=== PATIENT | female | born 1945 | race Caucasian/White ===

== ENCOUNTER → 2016-05-24 | Outpatient (CLI) | payer MEDICARE ==
--- NOTE | 2016-05-24 09:54 | XR ---
EXAMINATION TYPE: XR lumbosacral spine min 4V DATE OF EXAM: 05/24/2016 9:27 AM CLINICAL HISTORY: Low back pain radiating into legs from fall injury 20 years ago per patient. TECHNIQUE: Frontal, lateral, and oblique images of the lumbar spine are obtained. COMPARISON: None FINDINGS: Osseous structures are demineralized which is noted low radiographic sensitivity. There are 5 lumbar type vertebral bodies identified. The lumbar spine shows levoconvex scoliotic cur vature centered at L3-L4 level without evidence of acute fracture or dislocation. There is reversal o f normal lumbar lordosis. Vertebral body heights are within normal limits. There is mild to moderate multilevel disc space narrowing and spurring most prominent at L3-L4 and L4-L5 levels. Multilevel fa cet degenerative changes are present most prominent in lower lumbar levels. The oblique images appear within normal limits. Vascular calcification in the overlying soft tissue is seen. IMPRESSION: Demineralization with loss of normal lumbar lordosis, multilevel degenerative changes mos t prominent at the right L3-L4 and L4-L5 levels noted.
== END | disposition home or self-care (01) ==
LOC: RADXRMAIN 09:03
PROVIDERS: ATTEND Family Medicine
DX: M81.0 Age-related osteoporosis without current pathological fracture (principal); M40.56 Lordosis, unspecified, lumbar region; M51.36 Other intervertebral disc degeneration, lumbar region
CPT/HCPCS: 72110

== ENCOUNTER → 2016-06-14 | Outpatient (CLI) | payer MEDICARE ==
--- NOTE | 2016-06-14 16:32 | BD ---
EXAMINATION TYPE: MG DEXA axial skeleton. DATE OF EXAM: 06/14/2016 10:22 AM COMPARISON: 10.07.2012 CLINICAL HISTORY: 71-year-old female Z78.0 POST MENOPAUSALW/O HRT Height: 63.5 Weight: 144 FRAX RISK QUESTIONS: Alcohol (3 or more units per day): Family History (Parent hip fracture): Glucocorticoids (More than 3mos): (Ex: prednisone, prednisolone, methylprednisolone, dexamethasone, and hydrocortisone). History of Fracture in Adulthood: Secondary Osteoporosis: 1. Type 1 Diabetes: 2. Hyperthyroidism: 3. Menopause before 45: 4. Malnutrition: 5. Chronic liver disease: Rheumatoid Arthritis: Current Tobacco Use: RISK FACTORS HISTORY OF: Family History of Osteoporosis: YES, HER MOTHER, NO BROKEN HIP THOUGH Smoke tobacco: NO Drink Alcohol: NO Active: NOT REALLY, SPINAL PAIN Diet low in dairy products/other sources of calcium: YES, LACTOSE INTOLERANT Postmenopausal woman: PARTIAL HYST IN HER LATE 20'S, MENOPAUSE SHE THINKS LATE 40'S EARLY 50'S Lost more than 2 inches in height since high school: NO Adrenal Insufficiency: NO MEDICATIONS: Prednisone or other steroids: INHALER FOR LUNGS, ASTHMA, VENTOLIN How Long: ON AND OFF FOR MANY YRS Thyroid Medications: YES Which medication: GENERIC SYNTHROID How Long: OVER 10 YRS Additional Medications: CALCIUM AND MAGNESIUM AND VIT D, BP MEDS, XANAX PRN, Additional History: NONE TO NOTE EXAM MEASUREMENTS: Bone mineral densitometry was performed using the [employer] System. Bone mineral density as measured about the Lumbar spine is: ----- L1-L4(G/cm2): 1.297 T Score Values are as follows: ----- L1: 0.5 ----- L2: 0.5 ----- L3: 1.4 ----- L4: 1.3 ----- L1-L4: 1.0 Bone mineral density has: Increased 3.6% since study of: 10.07.2012 Bone mineral density about the R hip (g/cm2): 1.121 Bone mineral density about the L hip (g/cm2): 1.070 T Score values are as follows: -----R Neck: 0.6 -----L Neck: 0.2 -----R Intertrochanter: -2.4 -----L Intertrochanter: -2.0 Bone mineral density has: Decreased -7.9% since study of: 10.07.2012 FRAX%'S: FOR MAJOR OSTEOPOROTIC FX: 6.8%....FOR HIP FX: 0.3% PROBABILITY OF FX IN 10 YRS TIME IMPRESSION: Osteopenia as indicated by T score values within the right hip. There is slightly increased risk of fracture and the patient may be considered for treatment. Re-Screen in 2-5 years. NOTE: T-SCORE=SD OF THE YOUNG ADULT MEAN.
== END | disposition home or self-care (01) ==
LOC: RADBDWWP 09:51
PROVIDERS: ATTEND Family Medicine
DX: M85.851 Other specified disorders of bone density and structure, right thigh (principal); Z78.0 Asymptomatic menopausal state
CPT/HCPCS: 77080

== ENCOUNTER → 2016-11-15 | Outpatient (CLI) | payer MEDICARE ==
--- NOTE | 2016-11-20 08:16 | MM ---
Reason for exam: screening (asymptomatic). Last mammogram was performed 1 year ago. History: Patient is postmenopausal. Benign stereotactic core biopsy of the left breast, May 14, 1999. Cyst aspiration of the right breast. Core biopsy of the left breast. Physical Findings: A clinical breast exam by your physician is recommended on an annual basis and results should be correlated with mammographic findings. MG 3D Screening Mammo W/Cad Bilateral CC and MLO view(s) were taken. Prior study comparison: November 14, 2015, bilateral MG 3d screening mammo w/cad. November 08, 2014, bilateral MG diagnostic mammo w CAD FRITZ. The breast tissue is heterogeneously dense. This may lower the sensitivity of mammography. Finding: There are stable coarse heterogeneous, diffuse/scattered and grouped calcifications in both breasts. Previous mammotome biopsy in the left breast. No significant changes in finding since November 14, 2015 and November 08, 2014. ASSESSMENT: Benign, BI-RAD 2 RECOMMENDATION: Routine screening mammogram of both breasts in 1 year.
== END | disposition home or self-care (01) ==
LOC: RADMAMWWP 08:11
PROVIDERS: ATTEND Family Medicine
DX: Z12.31 Encounter for screening mammogram for malignant neoplasm of breast (principal)
CPT/HCPCS: 77063; G0202

== ENCOUNTER → 2017-12-15 | Outpatient (CLI) | payer MEDICARE ==
--- NOTE | 2017-12-17 11:59 | MM ---
Reason for exam: screening (asymptomatic). Last mammogram was performed 1 year and 1 month ago. History: Patient is postmenopausal. Benign stereotactic core biopsy of the left breast, May 14, 1999. Cyst aspiration of the right breast. Core biopsy of the left breast. Physical Findings: A clinical breast exam by your physician is recommended on an annual basis and results should be correlated with mammographic findings. MG 3D Screening Mammo W/Cad Bilateral CC and MLO view(s) were taken. Prior study comparison: November 15, 2016, bilateral MG 3d screening mammo w/cad. November 14, 2015, bilateral MG 3d screening mammo w/cad. There are scattered fibroglandular densities. Previous mammotome biopsy in the left breast. No significant changes when compared with prior studies. ASSESSMENT: Negative, BI-RAD 1 RECOMMENDATION: Routine screening mammogram of both breasts in 1 year.
== END | disposition home or self-care (01) ==
LOC: RADMAMWWP 09:21
PROVIDERS: ATTEND Family Medicine
DX: Z12.31 Encounter for screening mammogram for malignant neoplasm of breast (principal)
CPT/HCPCS: 77063; 77067

== ENCOUNTER → 2018-12-29 | Outpatient (CLI) | payer MEDICARE ==
--- NOTE | 2019-01-01 09:16 | MM ---
Reason for exam: screening (asymptomatic). Last mammogram was performed 1 year ago. History: Patient is postmenopausal. Benign stereotactic core biopsy of the left breast, May 14, 1999. Cyst aspiration of the right breast. Core biopsy of the left breast. Physical Findings: A clinical breast exam by your physician is recommended on an annual basis and results should be correlated with mammographic findings. MG 3D Screening Mammo W/Cad Bilateral CC and MLO view(s) were taken. Prior study comparison: December 15, 2017, bilateral MG 3d screening mammo w/cad. November 15, 2016, bilateral MG 3d screening mammo w/cad. There are scattered fibroglandular densities. Benign appearing bilateral calcifications. No suspicious abnormality. Left biopsy marker noted. No significant changes when compared with prior studies. ASSESSMENT: Benign, BI-RAD 2 RECOMMENDATION: Routine screening mammogram of both breasts in 1 year.
== END | disposition home or self-care (01) ==
LOC: RADMAMWWP 11:06
PROVIDERS: ATTEND Family Medicine
DX: Z12.31 Encounter for screening mammogram for malignant neoplasm of breast (principal)
CPT/HCPCS: 77063; 77067

== ENCOUNTER 2023-04-08 09:17 | Inpatient (IN) | payer MEDICARE ==
[2023-04-08] MEDS ORDERED: ONDANSETRON 4 MG/2 ML VIAL IVP STA (09:42)
[2023-04-08] MEDS ORDERED: SODIUM CHLORIDE 0.9% 1,000 ML IV STA (09:42)
[2023-04-08 10:25] LABS: Basophils % (A) 0 %; Eosinophils % (A) 0 %; HCT 42.6 % (34.0-46.0); HGB 15.5 gm/dL (11.4-16.0); Lymphocytes # (A) 0.5 k/uL (1.0-4.8); Lymphocytes % (A) 14 %; MCH 30.1 pg (25.0-35.0); MCHC 36.3 g/dL (31.0-37.0); MCV 82.9 fL (80.0-100.0); Mean Platelet Volume 7.5; Monocytes # (A) 0.3 k/uL (0-1.0); Monocytes % (A) 7 %; Neutrophils # (A) 2.9 k/uL (1.3-7.7); Neutrophils % (A) 77 %; Platelet Count 138 k/uL (150-450); RBC 5.14 m/uL (3.80-5.40); RDW 12.2 % (11.5-15.5); WBC 3.8 k/uL (3.8-10.6)
--- NOTE | 2023-04-08 10:37 | ED ---
Nausea/Vomiting/Diarrhea HPI - General Chief complaint: Nausea/Vomiting/Diarrhea Stated complaint: flu like symptoms Time Seen by Provider: 04/08/23 09:35 Source: patient, RN notes reviewed Mode of arrival: wheelchair Limitations: no limitations - History of Present Illness Initial comments: 77-year-old female presents emergency Department chief complaint of cough congestion fever bodyaches nausea vomiting. Symptoms started 4-5 days ago. She does admit that her has similar symptoms but he is much improved. She states she is concerned about possible dehydration as she isn't unable to keep anything down. She does when a mild abdominal discomfort denies any localized abdominal pain. She states she is productive cough states that she has joint, body aches. Patient denies significant diarrhea she does complain of dysuria, urinary frequency and is having concerns of UTI. - Related Data Allergies Allergy/AdvReac Type Severity Reaction Status Date / Time codeine AdvReac Unknown Verified 04/08/23 09:28 Review of Systems ROS Statement: Those systems with pertinent positive or pertinent negative responses have been documented in the HPI. ROS Other: All systems not noted in ROS Statement are negative. Past Medical History Past Medical History: Asthma, Hypertension, Thyroid Disorder Additional Past Medical History / Comment(s): gastritis History of Any Multi-Drug Resistant Organisms: None Reported Past Surgical History: Cholecystectomy Additional Past Surgical History / Comment(s): bladder suspension Past Psychological History: No Psychological Hx Reported Smoking Status: Never smoker Past Alcohol Use History: None Reported Past Drug Use History: None Reported General Exam Limitations: no limitations General appearance: alert, in no apparent distress Head exam: Present: atraumatic, normocephalic, normal inspection Eye exam: Present: normal appearance, PERRL, EOMI. Absent: scleral icterus, conjunctival injection, periorbital swelling ENT exam: Present: normal exam, mucous membranes moist Neck exam: Present: normal inspection, full ROM. Absent: tenderness, meningismus, lymphadenopathy Respiratory exam: Present: normal lung sounds bilaterally. Absent: respiratory distress, wheezes, rales, rhonchi, stridor Cardiovascular Exam: Present: regular rate, normal rhythm, normal heart sounds. Absent: systolic murmur, diastolic murmur, rubs, gallop, clicks GI/Abdominal exam: Present: soft, tenderness, normal bowel sounds. Absent: distended, guarding, rebound, rigid Neurological exam: Present: alert, oriented X3 Skin exam: Present: warm, dry, intact, normal color. Absent: rash Course Vital Signs 04/08/23 04/08/23 09:29 12:42 Temperature 97.4 F L Pulse Rate 72 76 Respiratory 18 16 Rate Blood Pressure 167/69 157/75 O2 Sat by Pulse 98 95 Oximetry Medical Decision Making - Medical Decision Making Was pt. sent in by a medical professional or institution (, [facility], [employer], urgent care, hospital, or [place] health care facility...) When possible be specific @ -No Did you speak to anyone other than the patient for history (EMS, parent, family, police, friend...)? What history was obtained from this source @ -Family providing past medical history Did you review nursing and triage notes (agree or disagree)? Why? @ -I reviewed and agree with nursing and triage notes Were old charts reviewed (outside hosp., previous admission, EMS record, old EKG, old radiological studies, urgent care reports/EKG's, [place] health care facility records)? Report findings @ -Reviewed by laboratory studies Differential Diagnosis (chest pain, altered mental status, abdominal pain women, abdominal pain men, vaginal bleeding, weakness, fever, dyspnea, syncope, headache, dizziness, GI bleed, back pain, seizure, CVA, palpatations, mental health, musculoskeletal)? @ -Differential Weakness: Hypoglycemia, shock, sepsis, hyponatremia, anemia, infection, IA, ETOH, adverse medicine reaction, overdose, stroke, this is not meant to be an all-inclusive list.ble EKG interpreted by me (3pts min.). @ -As above X-rays interpreted by me (1pt min.). @ -Chest x-ray shows COPD changes, chronic changes no acute process CT interpreted by me (1pt min.). @ -None done U/S interpreted by me (1pt. min.). @ -None done What testing was considered but not performed or refused? (CT, X-rays, U/S, labs)? Why? @ -None What meds were considered but not given or refused? Why? @ -None Did you discuss the management of the patient with other professionals (professionals i.e. , [facility], [employer], lab, RT, psych nurse, social psychologist, truck dispatcher, teacher, human resources officer, corrections caseworker)? Give summary @ -No Was smoking cessation discussed for >3mins.? @ -No Was critical care preformed (if so, how long)? @ -No Were there social determinants of health that impacted care today? How? (Homele ssness, low income, unemployed, alcoholism, drug addiction, transportation, low edu. Level, literacy, decrease access to med. care, penitentiary, rehab)? @ -No Was there de-escalation of care discussed even if they declined (Discuss DNR or withdrawal of care, Hospice)? DNR status @ -No What co-morbidities impacted this encounter? (DM, HTN, Smoking, COPD, CAD, Cancer, CVA, ARF, Chemo, Hep., AIDS, mental health diagnosis, sleep apnea, morbid obesity)? @ -None Was patient admitted / discharged? Hospital course, mention meds given and route, prescriptions, significant lab abnormalities, going to OR and other pertinent info. @ -Admitted patient is COVID-19 positive, patient is found to have significant hyponatremia and which patient states was given initial fluid bolus, started maintenance fluids. Patient also has hypokalemia at 2.6. Patient was given replacement based on replacement protocol. Patient will be admitted with nephrology consult. Undiagnosed new problem with uncertain prognosis? @ -No Drug Therapy requiring intensive monitoring for toxicity (Heparin, Nitro, Insulin, Cardizem)? @ -No Were any procedures done? @ -No Diagnosis/symptom? @ -COVID-19, hyponatremia, hypokalemia Acute, or Chronic, or Acute on Chronic? @ -Acute Uncomplicated (without systemic symptoms) or Complicated (systemic symptoms)? @ - complicated Side effects of treatment? @ -No Exacerbation, Progression, or Severe Exacerbation? @ -No Poses a threat to life or bodily function? How? (Chest pain, USA, IA, pneumonia, PE, COPD, DKA, ARF, appy, cholecystitis, CVA, Diverticulitis, Homicidal, Suicidal, threat to staff... and all critical care pts) @ -[Yes patient has significant hyponatremia, hypokalemia - Lab Data Result diagrams: 04/08/23 09:50 04/08/23 11:10 Lab Results 04/08/23 04/08/23 04/08/23 Range/Units 09:50 09:50 09:50 WBC 3.8 (3.8-10.6) k/uL RBC 5.14 (3.80-5.40) m/uL Hgb 15.5 (11.4-16.0) gm/dL Hct 42.6 (34.0-46.0) % MCV 82.9 (80.0-100.0) fL MCH 30.1 (25.0-35.0) pg MCHC 36.3 (31.0-37.0) g/dL RDW 12.2 (11.5-15.5) % Plt Count 138 L (150-450) k/uL MPV 7.5 Neutrophils % 77 % Lymphocytes % 14 % Monocytes % 7 % Eosinophils % 0 % Basophils % 0 % Neutrophils # 2.9 (1.3-7.7) k/uL Lymphocytes # 0.5 L (1.0-4.8) k/uL Monocytes # 0.3 (0-1.0) k/uL Eosinophils # 0.0 (0-0.7) k/uL Basophils # 0.0 (0-0.2) k/uL Sodium 115 L* (137-145) mmol/L Potassium 2.7 L* (3.5-5.1) mmol/L Chloride 76 L (98-107) mmol/L Carbon Dioxide 28 (22-30) mmol/L Anion Gap 11 mmol/L BUN 8 (7-17) mg/dL Creatinine 0.36 L (0.52-1.04) mg/dL Est GFR (CKD-EPI)AfAm >90 (>60 ml/min/1.73 sqM) Est GFR (CKD-EPI)NonAf >90 (>60 ml/min/1.73 sqM) Glucose 120 H (74-99) mg/dL Calcium 8.4 (8.4-10.2) mg/dL Total Bilirubin 0.8 (0.2-1.3) mg/dL AST 80 H (14-36) U/L ALT 70 H (4-34) U/L Alkaline Phosphatase 91 (38-126) U/L Total Protein 6.6 (6.3-8.2) g/dL Albumin 3.9 (3.5-5.0) g/dL Lipase 74 (23-300) U/L Urine Color Yellow Urine Appearance Cloudy H (Clear) Urine pH 7.0 (5.0-8.0) Ur Specific [place] 1.020 (1.001-1.035) Urine Protein 1+ H (Negative) Urine Glucose (UA) Negative (Negative) Urine Ketones 2+ H (Negative) Urine Blood Small H (Negative) Urine Nitrite Negative (Negative) Urine Bilirubin Negative (Negative) Urine Urobilinogen <2.0 (<2.0) mg/dL Ur Leukocyte Esterase Large H (Negative) Urine RBC 15 H (0-5) /hpf Urine WBC 158 H (0-5) /hpf Urine WBC Clumps Few H (None) /hpf Ur Squamous Epith Cells 2 (0-4) /hpf Urine Bacteria Few H (None) /hpf Urine Mucus Few H (None) /hpf Influenza Type A (PCR) (Not Detectd) Influenza Type B (PCR) (Not Detectd) RSV (PCR) (Not Detectd) SARS-CoV-2 (PCR) (Not Detectd) 04/08/23 04/08/23 Range/Units 09:50 11:10 WBC (3.8-10.6) k/uL RBC (3.80-5.40) m/uL Hgb (11.4-16.0) gm/dL Hct (34.0-46.0) % MCV (80.0-100.0) fL MCH (25.0-35.0) pg MCHC (31.0-37.0) g/dL RDW (11.5-15.5) % Plt Count (150-450) k/uL MPV Neutrophils % % Lymphocytes % % Monocytes % % Eosinophils % % Basophils % % Neutrophils # (1.3-7.7) k/uL Lymphocytes # (1.0-4.8) k/uL Monocytes # (0-1.0) k/uL Eosinophils # (0-0.7) k/uL Basophils # (0-0.2) k/uL Sodium 117 L* (137-145) mmol/L Potassium 2.6 L* (3.5-5.1) mmol/L Chloride 81 L (98-107) mmol/L Carbon Dioxide 26 (22-30) mmol/L Anion Gap 10 mmol/L BUN 7 (7-17) mg/dL Creatinine 0.31 L (0.52-1.04) mg/dL Est GFR (CKD-EPI)AfAm >90 (>60 ml/min/1.73 sqM) Est GFR (CKD-EPI)NonAf >90 (>60 ml/min/1.73 sqM) Glucose 111 H (74-99) mg/dL Calcium 7.7 L (8.4-10.2) mg/dL Total Bilirubin (0.2-1.3) mg/dL AST (14-36) U/L ALT (4-34) U/L Alkaline Phosphatase (38-126) U/L Total Protein (6.3-8.2) g/dL Albumin (3.5-5.0) g/dL Lipase (23-300) U/L Urine Color Urine Appearance (Clear) Urine pH (5.0-8.0) Ur Specific [place] (1.001-1.035) Urine Protein (Negative) Urine Glucose (UA) (Negative) Urine Ketones (Negative) Urine Blood (Negative) Urine Nitrite (Negative) Urine Bilirubin (Negative) Urine Urobilinogen (<2.0) mg/dL Ur Leukocyte Esterase (Negative) Urine RBC (0-5) /hpf Urine WBC (0-5) /hpf Urine WBC Clumps (None) /hpf Ur Squamous Epith Cells (0-4) /hpf Urine Bacteria (None) /hpf Urine Mucus (None) /hpf Influenza Type A (PCR) Not Detected (Not Detectd) Influenza Type B (PCR) Not Detected (Not Detectd) RSV (PCR) Not Detected (Not Detectd) SARS-CoV-2 (PCR) Detected A (Not Detectd) - EKG Data -: EKG Interpreted by Me EKG Comments: EKG performed at 13:03 sinus rhythm rate of 76 MO 199 QRS 154 QT/QTC 475/505 left bundle-branch Disposition Clinical Impression: Dehydration, COVID-19, Hyponatremia, Hypokalemia, UTI (urinary tract infection) Disposition: ADMITTED IP TO THIS HOSP Condition: Fair Time of Disposition: 12:00
[2023-04-08 10:39] LABS: ALT 70 U/L (4-34); AST 80 U/L (14-36); African American GFR (CKD) >90 (>60 ml/min/1.73 sqM); Albumin 3.9 g/dL (3.5-5.0); Alkaline Phosphatase 91 U/L (38-126); Anion Gap 11 mmol/L; Blood Urea Nitrogen 8 mg/dL (7-17); Calcium 8.4 mg/dL (8.4-10.2); Carbon Dioxide 28 mmol/L (22-30); Chloride 76 mmol/L (98-107); Glucose 120 mg/dL (74-99); Lipase 74 U/L (23-300); Non-African American GFR(CKD) >90 (>60 ml/min/1.73 sqM); Total Bilirubin 0.8 mg/dL (0.2-1.3); Total Protein 6.6 g/dL (6.3-8.2)
--- NOTE | 2023-04-08 10:40 | XR ---
EXAMINATION TYPE: XR chest 2V DATE OF EXAM: 04/08/2023 COMPARISON: None HISTORY: 77-year-old female with cough and congestion TECHNIQUE: AP and lateral views FINDINGS: Heart mildly enlarged. Calcified mediastinal and hilar lymph nodes suggesting sequela of prior granul omatous disease. Hyperinflation without consolidation or pleural effusion. IMPRESSION: Mild cardiomegaly and findings that suggest prior granulomatous disease. Suspect underlying COPD. Cli nically correlate. No acute process seen.
[2023-04-08 10:54] LABS: Potassium 2.7 mmol/L (3.5-5.1); Sodium 115 mmol/L (137-145)
[2023-04-08 11:11] LABS: Appearance,Urine Cloudy (Clear); Bacteria,Urine Few /hpf; Bilirubin,Urine Negative (Negative); Blood,Urine Small (Negative); Color,Urine Yellow; Glucose,Urine (UA) Negative (Negative); Ketones,Urine 2+ (Negative); Leukocyte Esterase,Urine Large (Negative); Mucus,Urine Few /hpf; Nitrite,Urine Negative (Negative); Protein,Urine 1+ (Negative); RBC,Urine 15 /hpf (0-5); Squamous Epithelial Cell,Urine 2 /hpf (0-4); Urobilinogen,Urine <2.0 mg/dL (<2.0); WBC,Urine 158 /hpf (0-5)
[2023-04-08 11:48] LABS: African American GFR (CKD) >90 (>60 ml/min/1.73 sqM); Anion Gap 10 mmol/L; Blood Urea Nitrogen 7 mg/dL (7-17); Calcium 7.7 mg/dL (8.4-10.2); Carbon Dioxide 26 mmol/L (22-30); Chloride 81 mmol/L (98-107); Glucose 111 mg/dL (74-99); Non-African American GFR(CKD) >90 (>60 ml/min/1.73 sqM)
[2023-04-08 11:50] LABS: Potassium 2.6 mmol/L (3.5-5.1); Sodium 117 mmol/L (137-145)
[2023-04-08] MEDS ORDERED: POTASSIUM CHLORIDE ER 20 MEQ TAB.ER PO ONE (11:50)
[2023-04-08] MEDS ORDERED: Potassium Replacement Protocol 1 EACH MISC MISCELLANE PRN (11:50)
[2023-04-08] MEDS ORDERED: ACETAMINOPHEN TAB 325 MG TAB PO PRN (12:00)
[2023-04-08] MEDS ORDERED: NALOXONE 0.4 MG/ML 1 ML VIAL IV PRN (12:00)
[2023-04-08] MEDS: POTASSIUM CHLORIDE 10 MEQ in WATER FOR INJECTION 1 100ML.BAG IVPB SCH ×2 (12:40→15:00)
[2023-04-08] MEDS: SODIUM CHLORIDE 0.9% 1,000 ML IV SCH ×2 (12:42→23:20)
[2023-04-08] MEDS ORDERED: ALPRAZolam 0.25 MG TAB PO STA (14:56)
[2023-04-08] MEDS ORDERED: HYDROcodone/APAP 10-325MG 1 EACH TAB PO STA (14:56)
[2023-04-08] MEDS: ONDANSETRON 4 MG/2 ML VIAL IVP PRN ×2 (15:01→23:23)
[2023-04-08 23:49] LABS: ALT 57 U/L (4-34); AST 52 U/L (14-36); African American GFR (CKD) >90 (>60 ml/min/1.73 sqM); Albumin 3.7 g/dL (3.5-5.0); Alkaline Phosphatase 81 U/L (38-126); Anion Gap 10 mmol/L; Blood Urea Nitrogen 4 mg/dL (7-17); Calcium 8.4 mg/dL (8.4-10.2); Carbon Dioxide 25 mmol/L (22-30); Chloride 92 mmol/L (98-107); Glucose 102 mg/dL (74-99); Non-African American GFR(CKD) >90 (>60 ml/min/1.73 sqM); Sodium 127 mmol/L (137-145); Total Bilirubin 0.7 mg/dL (0.2-1.3); Total Protein 6.3 g/dL (6.3-8.2)
[2023-04-09 00:08] LABS: Potassium 2.7 mmol/L (3.5-5.1)
[2023-04-09] MEDS ORDERED: Potassium Replacement Protocol 1 EACH MISC MISCELLANE PRN ×2 (00:11→13:33)
[2023-04-09] MEDS ORDERED: HYDROcodone/APAP 10-325MG 1 EACH TAB PO SCH (00:30)
[2023-04-09] MEDS: POTASSIUM CHLORIDE 10 MEQ in WATER FOR INJECTION 1 100ML.BAG IVPB SCH ×6 (00:54→06:12)
[2023-04-09] MEDS: HYDROcodone/APAP 10-325MG 1 EACH TAB PO SCH ×5 (03:46→20:56)
[2023-04-09] MEDS: ALPRAZolam 0.25 MG TAB PO PRN ×2 (03:47→13:15)
[2023-04-09] MEDS: ONDANSETRON 4 MG/2 ML VIAL IVP PRN ×2 (08:22→16:48)
[2023-04-09 10:12] LABS: African American GFR (CKD) >90 (>60 ml/min/1.73 sqM); Anion Gap 9 mmol/L; Blood Urea Nitrogen 4 mg/dL (7-17); Calcium 8.2 mg/dL (8.4-10.2); Carbon Dioxide 24 mmol/L (22-30); Chloride 95 mmol/L (98-107); Glucose 97 mg/dL (74-99); Non-African American GFR(CKD) >90 (>60 ml/min/1.73 sqM); Potassium 3.4 mmol/L (3.5-5.1); Sodium 128 mmol/L (137-145)
[2023-04-09] MEDS ORDERED: DEXTROSE 5% IN WATER 1,000 ML IV SCH (11:30)
--- NOTE | 2023-04-09 14:42 | P.NPCON ---
History of Present Illness - Reason for Consult hyponatremia - History of Present Illness Reason for consultation: Hyponatremia History of present illness: Patient is a 77-year-old female seen in renal consultation for hyponatremia. Patient's sodium on admission on 04/08/2023 at 10 AM was 1:15. Patient was started on IV fluids and normal saline at 75 mL an hour and sodium level this morning was 128. Normal saline was discontinued and she was subsequently started on D5 W and repeat sodium level at 1:16 PM was stable at 128. Patient came to the hospital due to poor intake and generalized weakness. She was having nausea and vomiting as well prior to admission. She was diagnosed with COVID-19 infection. She was taking Dyazide diuretic at home. Blood pressures currently on the higher side. No history of diabetes. Denies history of coronary artery disease. No history of kidney disease. GFR at baseline. Denies excessive fluid intake. Denies history of malignancy. Vital signs are stable. General: NAD. HEENT: Head exam is unremarkable. LUNGS: No audible rhonchi or wheezes. HEART: Rate and Rhythm are regular. ABDOMEN: Nontender. EXTREMITITES: No edema. Past Medical History Past Medical History: Asthma, Hypertension, Thyroid Disorder Additional Past Medical History / Comment(s): gastritis, severe back injury History of Any Multi-Drug Resistant Organisms: None Reported Past Surgical History: Cholecystectomy Additional Past Surgical History / Comment(s): bladder suspension Past Psychological History: No Psychological Hx Reported Smoking Status: Never smoker Past Alcohol Use History: None Reported Past Drug Use History: None Reported Medications and Allergies Home Medications Medication Instructions Recorded Confirmed Type ALPRAZolam [Xanax] 0.25 mg PO TID PRN 04/08/23 04/08/23 History Atenolol/Chlorthalidone 1 tab PO DAILY 04/08/23 04/08/23 History [Atenolol-Chlorthalidone 100-25] Fluconazole 150 mg PO ONCE PRN 04/08/23 04/08/23 History HYDROcodone/APAP 10-325MG [[place] 1 tab PO QID 04/08/23 04/08/23 History 10-325] Levothyroxine Sodium [Synthroid] 50 mcg PO DAILY 04/08/23 04/08/23 History Losartan Potassium 100 mg PO DAILY 04/08/23 04/08/23 History Nitrofurantoin Monohyd/M-Cryst 100 mg PO Q12HR 04/08/23 04/08/23 History [Macrobid] Allergies Allergy/AdvReac Type Severity Reaction Status Date / Time codeine AdvReac Unknown Verified 04/08/23 18:14 Physical Exam Vitals: Vital Signs Temp Pulse Pulse Pulse Resp BP BP 04/09/23 13:10 97.9 F 79 16 183/83 04/09/23 08:20 97.7 F 79 18 181/79 04/09/23 03:48 81 16 160/75 04/09/23 01:44 20 04/08/23 23:06 98.6 F 75 20 180/80 04/08/23 22:59 75 16 160/87 04/08/23 22:00 75 142/66 04/08/23 21:00 62 159/75 04/08/23 20:06 97.6 F 04/08/23 20:00 70 168/76 04/08/23 19:00 70 18 160/81 04/08/23 18:30 68 18 160/73 04/08/23 18:00 70 18 158/70 04/08/23 17:30 68 18 153/69 04/08/23 17:00 68 18 155/71 04/08/23 16:30 70 18 138/81 04/08/23 16:00 68 18 158/82 04/08/23 15:30 76 18 167/81 04/08/23 15:00 77 18 162/76 Pulse Ox 04/09/23 13:10 96 04/09/23 08:20 97 04/09/23 03:48 96 04/09/23 01:44 04/08/23 23:06 97 04/08/23 22:59 04/08/23 22:00 96 04/08/23 21:00 96 04/08/23 20:06 04/08/23 20:00 96 04/08/23 19:00 95 04/08/23 18:30 96 04/08/23 18:00 97 04/08/23 17:30 96 04/08/23 17:00 96 04/08/23 16:30 97 04/08/23 16:00 97 04/08/23 15:30 97 04/08/23 15:00 97 Intake and Output 04/08/23 04/09/23 04/09/23 22:59 06:59 14:59 Intake Total 220 Output Total 8318 229 0354 Balance -6546 -350 -9047 Intake: Oral 220 Output: Urine 7076 040 2651 Other: Voiding Method External Catheter External Catheter # Voids 1 # Bowel Movements 1 Weight 66.224 kg Results - Lab Results Most recent lab results Calcium 8.2 mg/dL (8.4-10.2) L 04/09/23 09:18 04/08/23 09:50 04/09/23 13:16 Assessment and Plan Plan: Assessment: 1. Hypovolemic hyponatremia further worsened with the use of thiazide diuretic. Improving with IV hydration. Sodium level I:XV on admission dated April 08 AM. 128 as of this afternoon. Currently on D5W. 2. Acute COVID-19 infection. 3. Benign hypertension. 4. Hypokalemia from poor intake and further worsened with the use of diuretic. Plan: Maintain D5W. Check TSH. Check serum and urine osmolality and urine sodium level. Potassium replaced. Check magnesium level. Repeat sodium level again at 3 PM. Continue to hold thiazide diuretic. Resume home dose losartan. Add Coreg. Thank you for the consultation. I will continue to follow the patient with you during her hospital stay.
[2023-04-09 15:04] LABS: Magnesium 1.6 mg/dL (1.6-2.3)
[2023-04-09] MEDS ORDERED: POTASSIUM CHLORIDE ER 20 MEQ TAB.ER PO SCH (16:00)
[2023-04-09] MEDS: carvediloL 3.125 MG TAB PO SCH (16:48)
[2023-04-09] MEDS: MAGNESIUM SULFATE-D5W PMX 1 GM in DEXTROSE/WATER 1 100ML.BAG IVPB SCH ×2 (16:49→18:37)
[2023-04-09] MEDS: LOSARTAN 50 MG TAB PO SCH (16:49)
[2023-04-09] MEDS: ALPRAZolam 0.25 MG TAB PO SCH ×3 (18:41→20:56)
[2023-04-09] MEDS: DEXTROSE 5% IN WATER 1,000 ML IV SCH ×2 (19:53→23:40)
[2023-04-10] MEDS: ONDANSETRON 4 MG/2 ML VIAL IVP PRN ×3 (03:23→20:03)
[2023-04-10] MEDS: DEXTROSE 5% IN WATER 1,000 ML IV SCH (03:48)
[2023-04-10] MEDS: ALPRAZolam 0.25 MG TAB PO SCH ×4 (06:09→23:43)
[2023-04-10] MEDS: HYDROcodone/APAP 10-325MG 1 EACH TAB PO SCH ×4 (06:09→23:43)
[2023-04-10] MEDS: LEVOTHYROXINE 50 MCG TAB PO SCH (06:10)
[2023-04-10] MEDS: carvediloL 3.125 MG TAB PO SCH ×2 (06:10→18:13)
[2023-04-10 06:26] LABS: African American GFR (CKD) >90 (>60 ml/min/1.73 sqM); Anion Gap 10 mmol/L; Blood Urea Nitrogen <2 mg/dL (7-17); Calcium 8.5 mg/dL (8.4-10.2); Carbon Dioxide 25 mmol/L (22-30); Chloride 93 mmol/L (98-107); Glucose 105 mg/dL (74-99); Non-African American GFR(CKD) >90 (>60 ml/min/1.73 sqM); Sodium 128 mmol/L (137-145)
[2023-04-10 07:55] LABS: Magnesium 1.9 mg/dL (1.6-2.3); Potassium 3.9 mmol/L (3.5-5.1)
[2023-04-10] MEDS ORDERED: NON FORMULARY DRUG (Losartan Potassium [Losartan Potassium] 100 MG Tablet) PO SCH (09:00)
[2023-04-10] MEDS: LOSARTAN 50 MG TAB PO SCH (09:40)
--- NOTE | 2023-04-10 13:13 | P.PN ---
Subjective Progress Note Date: 04/10/23 Follow for hypernatremia. Urine output of 4.3 L in the last 24 hours. Objective - Vital Signs Vital signs: Vital Signs Temp 97.8 F 04/10/23 11:25 Pulse 102 H 04/10/23 11:25 Resp 20 04/10/23 11:25 BP 173/81 04/10/23 11:25 Pulse Ox 98 04/10/23 11:25 FiO2 Intake & Output 04/09/23 04/10/23 04/10/23 18:59 06:59 18:59 Intake Total 460 240 Output Total 2802 1552 600 Balance -8922 -5062 -740 Intake: Oral 460 240 Output: Urine 2800 1550 600 Stool 2 2 Other: Voiding Method External Catheter External Catheter External Catheter # Voids 1 # Bowel Movements 1 1 - Exam No acute distress S1-S2 heard Lungs clear No edema - Labs CBC & Chem 7: 04/08/23 09:50 04/10/23 09:04 Labs: Abnormal Lab Results - Last 24 Hours (Table) 04/09/23 04/09/23 04/09/23 Range/Units 13:16 14:40 18:59 Sodium 128 L 125 L 128 L (137-145) mmol/L Chloride (98-107) mmol/L BUN (7-17) mg/dL Creatinine (0.52-1.04) mg/dL Glucose (74-99) mg/dL Osmolality 265 L (280-301) mosm/kg 04/09/23 04/10/23 04/10/23 Range/Units 22:03 00:07 02:35 Sodium 128 L 128 L 127 L (137-145) mmol/L Chloride (98-107) mmol/L BUN (7-17) mg/dL Creatinine (0.52-1.04) mg/dL Glucose (74-99) mg/dL Osmolality (280-301) mosm/kg 04/10/23 04/10/23 04/10/23 Range/Units 05:20 05:20 09:04 Sodium 128 L 128 L 128 L (137-145) mmol/L Chloride 93 L (98-107) mmol/L BUN <2 L (7-17) mg/dL Creatinine 0.37 L (0.52-1.04) mg/dL Glucose 105 H (74-99) mg/dL Osmolality (280-301) mosm/kg Microbiology - Last 24 Hours (Table) 04/08/23 13:45 Blood Culture - Preliminary Blood 04/08/23 13:45 Blood Culture - Preliminary Blood Assessment and Plan Assessment: #1 hypervolemic hyponatremia secondary to thiazide diuretic use. #2 acute Covid 19 infection #3 benign hypertension #4 hypokalemia secondary to diuretic Plan: #1 sodium rapidly corrected on 04/08/2023 to 04/09/2023, by 12 points, stable with D5 water. But goal still at goal of 18 points in 48 hours. #2 encourage by mouth intake. #2 labs in the morning
--- NOTE | 2023-04-10 16:29 | PN ---
PROGRESS NOTE DATE OF SERVICE: 04/10/2023 CHIEF COMPLAINT: COVID with hyponatremia and hypokalemia. HISTORY OF PRESENT ILLNESS: This lady is doing better. She is little bit dehydrated. She still has myalgias and headache and is still slightly nauseated. She feels very weak. PHYSICAL EXAMINATION: GENERAL: Color is good. VITAL SIGNS: Normal. CHEST: Clear. CARDIAC: Normal. ABDOMEN: Soft and nontender. IMPRESSION: 1. COVID. 2. Electrolyte imbalance. 3. Dehydration. PLAN: Continue with IV fluids and increase activity and diet and probably home tomorrow. MMODL / IJN: [id number] /
--- NOTE | 2023-04-10 18:35 | HP ---
HISTORY AND PHYSICAL CHIEF COMPLAINT: Weakness, malaise, fever, chills, dehydration, COVID, hyponatremia, and hypokalemia. HISTORY OF PRESENT ILLNESS: This is the first known admission for this 77-year-old female with a history of hypertension and low back pain, who otherwise has been fairly healthy. She has had fever and achiness and presented with COVID. REVIEW OF SYSTEMS: She denies chest pain, shortness of breath, abdominal pain, etc. She has been vomiting. She also has a headache. Past medical history, family history, and personal and social histories are all otherwise unremarkable and noncontributory. PHYSICAL EXAMINATION: VITAL SIGNS: Blood pressure is 167/69 with a pulse of 81, respirations of 36, and she is afebrile. HEAD, EARS, EYES, NOSE, MOUTH, AND THROAT: Normal. CHEST: Clear. CARDIAC: Normal. ABDOMEN: Soft and nontender. EXTREMITIES: Normal. IMPRESSION: 1. COVID. 2. Hyponatremia. 3. Hypokalemia. 4. Dehydration. PLAN: 1. Bed rest. 2. IV fluids. 3. Correct electrolyte imbalance. MMODL / IJN: [id number] /
[2023-04-11] MEDS: HYDROcodone/APAP 10-325MG 1 EACH TAB PO SCH ×3 (06:12→17:54)
[2023-04-11] MEDS: ALPRAZolam 0.25 MG TAB PO SCH ×3 (06:14→17:54)
[2023-04-11] MEDS: LEVOTHYROXINE 50 MCG TAB PO SCH (06:15)
[2023-04-11] MEDS: carvediloL 3.125 MG TAB PO SCH ×2 (06:15→17:54)
[2023-04-11] MEDS: LOSARTAN 50 MG TAB PO SCH (08:57)
[2023-04-11 10:24] LABS: Basophils % (A) 0 %; Eosinophils # (A) 0.1 k/uL (0-0.7); Eosinophils % (A) 1 %; HCT 43.8 % (34.0-46.0); HGB 15.1 gm/dL (11.4-16.0); Lymphocytes # (A) 1.5 k/uL (1.0-4.8); Lymphocytes % (A) 31 %; MCH 29.6 pg (25.0-35.0); MCHC 34.4 g/dL (31.0-37.0); MCV 86.3 fL (80.0-100.0); Mean Platelet Volume 7.2; Monocytes # (A) 0.5 k/uL (0-1.0); Monocytes % (A) 10 %; Neutrophils # (A) 2.6 k/uL (1.3-7.7); Neutrophils % (A) 56 %; Platelet Count 193 k/uL (150-450); RBC 5.08 m/uL (3.80-5.40); RDW 12.7 % (11.5-15.5); WBC 4.7 k/uL (3.8-10.6)
[2023-04-11 10:43] LABS: ALT 39 U/L (4-34); AST 37 U/L (14-36); African American GFR (CKD) >90 (>60 ml/min/1.73 sqM); Albumin 3.7 g/dL (3.5-5.0); Alkaline Phosphatase 64 U/L (38-126); Anion Gap 11 mmol/L; Blood Urea Nitrogen 8 mg/dL (7-17); Calcium 9.1 mg/dL (8.4-10.2); Carbon Dioxide 25 mmol/L (22-30); Chloride 93 mmol/L (98-107); Glucose 130 mg/dL (74-99); Non-African American GFR(CKD) >90 (>60 ml/min/1.73 sqM); Potassium 3.5 mmol/L (3.5-5.1); Sodium 129 mmol/L (137-145); Total Bilirubin 0.7 mg/dL (0.2-1.3); Total Protein 6.4 g/dL (6.3-8.2)
[2023-04-11 11:43] LABS: Color,Urine Colorless; Mucus,Urine Rare /hpf; RBC,Urine 1 /hpf (0-5); Squamous Epithelial Cell,Urine 1 /hpf (0-4); WBC,Urine 21 /hpf (0-5)
[2023-04-11 11:44] LABS: Appearance,Urine Clear (Clear); Bilirubin,Urine Negative (Negative); Blood,Urine Trace (Negative); Glucose,Urine (UA) Negative (Negative); Ketones,Urine Negative (Negative); Leukocyte Esterase,Urine Moderate (Negative); Nitrite,Urine Negative (Negative); Protein,Urine Negative (Negative); Specific Gravity,Urine 1.006 (1.001-1.035); Urobilinogen,Urine <2.0 mg/dL (<2.0)
--- NOTE | 2023-04-11 12:15 | P.PN ---
Subjective Progress Note Date: 04/11/23 Follow for hypernatremia. Urine output of 1.4 L in the last 24 hours. Objective - Vital Signs Vital signs: Vital Signs Temp 97.9 F 04/11/23 11:48 Pulse 82 04/11/23 11:48 Resp 20 04/11/23 11:48 BP 196/90 04/11/23 11:48 Pulse Ox 97 04/11/23 11:48 FiO2 Intake & Output 04/10/23 04/11/23 04/11/23 18:59 06:59 18:59 Intake Total 1300 125 480 Output Total 600 800 Balance 700 -675 480 Intake: Oral 1300 125 480 Output: Urine 600 800 Other: Voiding Method External Catheter # Voids 4 1 # Bowel Movements 1 - Exam No acute distress S1-S2 heard Lungs clear No edema - Labs CBC & Chem 7: 04/11/23 10:02 04/11/23 10:02 Labs: Abnormal Lab Results - Last 24 Hours (Table) 04/11/23 04/11/23 Range/Units 10:02 11:00 Sodium 129 L (137-145) mmol/L Chloride 93 L (98-107) mmol/L Creatinine 0.43 L (0.52-1.04) mg/dL Glucose 130 H (74-99) mg/dL AST 37 H (14-36) U/L ALT 39 H (4-34) U/L Urine WBC 21 H (0-5) /hpf Urine Mucus Rare H (None) /hpf Microbiology - Last 24 Hours (Table) 04/08/23 13:45 Blood Culture - Preliminary Blood 04/08/23 13:45 Blood Culture - Preliminary Blood Assessment and Plan Assessment: #1 hypervolemic hyponatremia secondary to thiazide diuretic use. #2 acute Covid 19 infection #3 benign hypertension #4 hypokalemia secondary to diuretic Plan: #1 sodium rapidly corrected on 04/08/2023 to 04/09/2023, by 12 points, stable with D5 water. But goal still of 18 points in 48 hours. #2 encourage by mouth intake. #2 add salt tablets 1 g twice a day.
[2023-04-11] MEDS: SODIUM CHLORIDE TAB 1 GM TAB PO SCH ×2 (13:50→21:10)
--- NOTE | 2023-04-11 21:29 | PN ---
PROGRESS NOTE DATE OF SERVICE: 04/11/2023 CHIEF COMPLAINT: COVID with electrolyte imbalance. HISTORY OF PRESENT ILLNESS: This lady is doing better. Electrolytes were greatly improved. She still feels weak and short of breath. PHYSICAL EXAMINATION: CARDIAC: She has a faint murmur. Otherwise normal. CHEST: Clear. She has slightly elevated liver function studies. IMPRESSION: 1. Coronavirus disease. 2. Murmur. 3. Elevated liver function studies. PLAN: 1. Echocardiogram. 2. Repeat UA and laboratory studies. MMODL / IJN: [id number] /
[2023-04-12] MEDS: HYDROcodone/APAP 10-325MG 1 EACH TAB PO SCH ×4 (00:15→17:00)
[2023-04-12] MEDS: ALPRAZolam 0.25 MG TAB PO SCH ×4 (00:16→16:59)
[2023-04-12] MEDS: carvediloL 3.125 MG TAB PO SCH (06:08)
[2023-04-12] MEDS: LEVOTHYROXINE 50 MCG TAB PO SCH (06:08)
[2023-04-12] MEDS: SODIUM CHLORIDE TAB 1 GM TAB PO SCH ×2 (08:13→20:13)
[2023-04-12] MEDS: LOSARTAN 50 MG TAB PO SCH (08:13)
--- NOTE | 2023-04-12 13:15 | P.PN ---
Subjective Progress Note Date: 04/12/23 Follow for hyponatremia. Urine output documented 400 ML's in the last 24 hours. Objective - Vital Signs Vital signs: Vital Signs Temp 98 F 04/12/23 08:10 Pulse 90 04/12/23 11:15 Resp 18 04/12/23 11:15 BP 187/84 04/12/23 11:15 Pulse Ox 99 04/12/23 11:15 FiO2 Intake & Output 04/11/23 04/12/23 04/12/23 18:59 06:59 18:59 Intake Total 720 240 Output Total 100 Balance 620 240 Intake: Oral 720 240 Output: Urine 100 Other: Voiding Method Toilet Toilet # Voids 1 4 2 # Bowel Movements 1 - Exam No acute distress S1-S2 heard Lungs clear No edema - Labs CBC & Chem 7: 04/11/23 10:02 04/11/23 10:02 Labs: Microbiology - Last 24 Hours (Table) 04/08/23 13:45 Blood Culture - Preliminary Blood 04/08/23 13:45 Blood Culture - Preliminary Blood Assessment and Plan Assessment: #1 hyponatremia secondary to thiazide diuretic use. #2 acute Covid 19 infection #3 benign hypertension currently uncontrolled, adjust medications #4 hypokalemia secondary to diuretic Plan: #1 sodium stable. #2 encourage high-protein diet. #3 added salt tablets 1 g twice a day. #4 add Procardia for better blood pressure control
--- NOTE | 2023-04-12 15:51 | CA ---
Transthoracic Echo Report Name: Shanna Tristan Age: 77 Gender: F : 1945 Exam Date: 04/11/2023 16:09 Exam Location: [facility] Ht (in): 64 Wt (lb): 146 Ordering Physician: Freddie Silverio MD Attending/Referring Phys: Nusrat DAUGHERTY Can Coverer Nola Stephens RDCS Procedure CPT: Indications: Murmur Cardiac Hx: Technical Quality: Fair Contrast 1: Total Dose (mL): Contrast 2: Total Dose (mL): MEASUREMENTS (Male / Female) Normal Values 2D ECHO LV Diastolic Diameter PLAX 3.9 cm 4.2 - 5.9 / 3.9 - 5.3 cm LV Systolic Diameter PLAX 2.7 cm IVS Diastolic Thickness 1.5 cm 0.6 - 1.0 / 0.6 - 0.9 cm LVPW Diastolic Thickness 1.3 cm 0.6 - 1.0 / 0.6 - 0.9 cm LV Relative Wall Thickness 0.7 RV Internal Dim ED PLAX 1.6 cm LA Volume 47.9 cm??? 18 - 58 / 22 - 52 cm??? LA Volume Index 27.5 cm???/m??? 16 - 28 cm???/m??? M-MODE Aortic Root Diameter MM 2.5 cm LA Systolic Diameter MM 3.3 cm LA Ao Ratio MM 1.3 AV Cusp Separation MM 1.7 cm DOPPLER AV Peak Velocity 143.2 cm/s AV Peak Gradient 8.2 mmHg AV Mean Velocity 92.8 cm/s AV Mean Gradient 3.9 mmHg AV Velocity Time Integral 26.1 cm LVOT Peak Velocity 71.3 cm/s LVOT Peak Gradient 2.0 mmHg LVOT Velocity Time Integral 16.0 cm MV E' Velocity 10.1 cm/s TR Peak Velocity 320.9 cm/s TR Peak Gradient 41.2 mmHg Right Ventricular Systolic Press 42.5 mmHg FINDINGS Left Ventricle Moderately increased left ventricular wall thickness. Left ventricular cavity size normal. No obvious regional wall motion abnormalities. Left ventricular ejection fraction is estimated at 55 %. Right Ventricle Normal right ventricular size and function. Mild pulmonary hypertension. Right Atrium Normal right atrial size. Left Atrium Left atrial dilatation. Mitral Valve Mild mitral annular calcification. Moderate prolapse of the posterior mitral valve leaflet. [id number] mitral regurgitation. Aortic Valve Trileaflet aortic valve. No aortic valve stenosis or regurgitation. Tricuspid Valve Structurally normal tricuspid valve. Mild tricuspid regurgitation. Pulmonic Valve Structurally normal pulmonic valve. Trace pulmonic regurgitation. Pericardium No pericardial effusion. Aorta Normal size aortic root and proximal ascending aorta. CONCLUSIONS Normal LV systolic function Severe mitral valve prolapse affecting the posterior leaflet with moderate to severe mitral regurgitation Previewed by: Dr. Memo Ugalde MD (Electronically Signed) Final Date: 12 April 2023 15:50
[2023-04-12] MEDS: carvediloL 12.5 MG TAB PO SCH (16:59)
[2023-04-13] MEDS: HYDROcodone/APAP 10-325MG 1 EACH TAB PO SCH ×2 (00:15→05:23)
[2023-04-13] MEDS: ALPRAZolam 0.25 MG TAB PO SCH ×2 (00:15→05:23)
[2023-04-13] MEDS: LEVOTHYROXINE 50 MCG TAB PO SCH (05:22)
[2023-04-13] MEDS: carvediloL 12.5 MG TAB PO SCH (05:22)
[2023-04-13] MEDS: LOSARTAN 50 MG TAB PO SCH (08:53)
[2023-04-13] MEDS: SODIUM CHLORIDE TAB 1 GM TAB PO SCH (08:54)
[2023-04-13 09:57] VITALS: BP 122/71; PULSE 82; RESP 18; TEMP 98
[2023-04-13 10:12] LABS: African American GFR (CKD) >90 (>60 ml/min/1.73 sqM); Anion Gap 12 mmol/L; Blood Urea Nitrogen 10 mg/dL (7-17); Calcium 8.9 mg/dL (8.4-10.2); Carbon Dioxide 26 mmol/L (22-30); Chloride 95 mmol/L (98-107); Glucose 109 mg/dL (74-99); Non-African American GFR(CKD) >90 (>60 ml/min/1.73 sqM); Potassium 3.4 mmol/L (3.5-5.1); Sodium 133 mmol/L (137-145)
--- NOTE | 2023-04-13 15:17 | DS ---
DISCHARGE SUMMARY CHIEF COMPLAINT: Nausea, vomiting, coronavirus disease, dehydration, electrolyte imbalance. HISTORY OF PRESENT ILLNESS AND PHYSICAL EXAMINATION: Details of this lady's history and physical can be found in the initial workup. LABORATORY STUDIES: While she is in the hospital, she had laboratory studies, details of which can be found in the laboratory section of her chart. COURSE IN THE HOSPITAL: After admission, she was placed on bedrest and started on intravenous fluids and efforts were made to bring up her sodium and potassium with food slowly. Blood pressure was also somewhat erratic and this was treated. While in the hospital, a cardiac murmur was heard and an echocardiogram was ordered. She continued to improve and was doing well, felt to be discharged on and she will go home on her usual activity and diet with some changes in her medications. She will be seen in the office in several days. FINAL DIAGNOSES: 1. Gastroenteritis. 2. Dehydration. 3. Hyponatremia. 4. Hypokalemia. 5. Coronavirus disease. 6. Hypertension. 7. Cardiac murmur. OPERATIONS: None. CONSULTATION: None. CONDITION: She is improved. MMODL / IJN: [id number] /
--- NOTE | 2023-04-13 15:46 | PN ---
PROGRESS NOTE DATE OF SERVICE: 04/12/2023 CHIEF COMPLAINT: COVID, dehydration, hyponatremia, and hypokalemia. HISTORY OF PRESENT ILLNESS: This lady has still been quite weak, but doing slightly better. It is noted also that her liver function studies were elevated slightly. Blood pressure has also occasionally been elevated, and this is being addressed. Sodium is still only 129. PHYSICAL EXAMINATION: GENERAL: She remains slightly pale. HEAD, EARS, EYES, NOSE, MOUTH, AND THROAT: Normal. CHEST: Clear. CARDIAC: Demonstrates a grade 2/3 systolic murmur. ABDOMEN: Soft and nontender. EXTREMITIES: Normal. IMPRESSION: 1. COVID. 2. Hyponatremia. 3. Hypokalemia. 4. Dehydration. 5. Elevated liver function studies. 6. Elevated blood pressure. 7. Cardiac murmur. PLAN: 1. Continue efforts to control hypertension and electrolytes. 2. Echocardiogram. MMODL / IJN: [id number] /
== END 2023-04-13 12:36 | disposition home or self-care (01) | DRG 178 ==
LOC: EC 09:17 → 3SCARD 12:58
PROVIDERS: ADMIT Family Medicine; ATTEND Family Medicine
DX: U07.1 COVID-19 (principal); A08.39 Other viral enteritis; E87.1 Hypo-osmolality and hyponatremia; N39.0 Urinary tract infection, site not specified; Z28.310 Unvaccinated for COVID-19; E86.0 Dehydration; E86.1 Hypovolemia; E87.6 Hypokalemia; E87.70 Fluid overload, unspecified; I10 Essential (primary) hypertension; T50.2X5A Adverse effect of carbonic-anhydrase inhibitors, benzothiadiazides and other diuretics, initial encounter; E07.9 Disorder of thyroid, unspecified; M54.50 Low back pain, unspecified; R01.1 Cardiac murmur, unspecified; R94.5 Abnormal results of liver function studies; Z79.890 Hormone replacement therapy; Z79.899 Other long term (current) drug therapy; Z88.5 Allergy status to narcotic agent
CPT/HCPCS: 36415; 71046; 80048; 80053; 81001; 83690; 83735; 83930; 83935; 84295; 84300; 84443; 85025; 87040; 87324; 87636; 93005; 93306; 96361; 96365; 96366; 96368; 96375; 99285